=== PATIENT | female | born 1950 | race Caucasian/White ===

== ENCOUNTER 2016-08-28 07:35 | Inpatient (IN) | payer OTHER ==
[~2016-08-28] VITALS: Ht 154.9 cm; Wt 80.5 kg
[2016-08-28] VITALS (15 sets, daily range): BP systolic 124–186; BP diastolic 66–100
[~2016-08-28 07:35] MED LIST: DICLOFENAC SODI75 MG PO; NORCO 5/3251 TABLET PO; PERCOCET 5/31 TABLET PO; ZOFRAN4 MG PO
[2016-08-28 08:16] LABS: EOSINOPHIL (%) 1.2 % (0-5); EOSINOPHIL COUNT 0.1 K/uL (0-0.3); HEMATOCRIT 42.7 % (36.0-46.0); IMMATURE GRANULOCYTE (%) 0.4 % (0.0-0.7); LYMPHOCYTE COUNT 1.5 K/uL (1.0-2.8); MCH 29.1 PG (29.0-34.0); MCHC 33.3 G/DL (30.0-36.0); MCV 87.5 FL (83-99); MEAN PLAT.VOLUME 10.9 uM^3 (9.5-12.4); MONOCYTE (%) 5.3 % (3-12); MONOCYTE COUNT 0.5 K/uL (0-0.8); NEUTROPHIL (%) 76.3 % (45-76); PLATELET COUNT 193 K/uL (156-360); RBC DIS.WIDTH-CV 12.6 % (11.8-14.6); RBC DIS.WIDTH-SD 40.4 % (39-53); RED BLOOD COUNT 4.88 M/uL (3.80-5.20); WHITE BLOOD COUNT 9.2 K/uL (4.1-10.2)
[2016-08-28 08:38] LABS: AMYLASE 31 IU/L (1-118); CHLORIDE 106 mEq/L (99-109); POTASSIUM 3.9 mEq/L (3.7-5.4); SODIUM 139 mEq/L (136-147)
[2016-08-28 08:40] LABS: GLUCOSE 246 mg/dL (70-99)
[2016-08-28 08:41] LABS: INTER. NORMALIZED RATIO 1.1; PROTHROMBIN TIME 11.7 (9.2-11.2)
[2016-08-28 08:42] LABS: ANION GAP 9 MEQ/L (2-14)
[2016-08-28 08:43] LABS: SERUM ETHYL ALCOHOL < 10 mg/dL
[2016-08-28 08:44] LABS: GFR ESTIMATE (CALCULATED) > 59 mL/min/
[2016-08-28 08:45] LABS: UREA NITROGEN (BUN) 17 mg/dL (9-23)
[2016-08-28 08:47] LABS: LIPASE 215 U/L (1.0-51.0)
[2016-08-28 09:13] LABS: PTT > 150.0 (25-32)
[2016-08-28] MEDS ORDERED: ALEVE220 MG PO (10:30)
[2016-08-28] MEDS ORDERED: VENTOLIN HFA18 GM IH (10:30)
[2016-08-28 10:31] LABS: TROP-I INTERPRETATION POSITIVE; TROPONIN-I 2.05 ng/mL (0.0-0.30)
[2016-08-28] MEDS ORDERED: DOXYCYCLINE HY100 M3 PO (10:31)
[2016-08-28 11:10] LABS: METH RESISTANT S AUREUS PCR NEGATIVE (NEGATIVE)
[2016-08-28 11:11] LABS: PROBE CHECK PASS; SPECIMEN PROCESSING CONTROL PASS
[2016-08-28 11:22] LABS: HDL CHOLESTEROL 35 MG/DL (Desirable>=50); LDL CHOLESTEROL 102 mg/dL (Desirable<100); NON-HDL CHOLESTEROL 112 mg/dL (Desirable<160); TOTAL CHOLESTEROL 147 mg/dL (Desirable<200); TRIGLYCERIDES 49 MG/DL (Normal: <150)
[2016-08-28 12:34] LABS: POINT-OF-CARE METER ID UU13113748
[2016-08-28 12:54] LABS: ADD MIUA? NO; BILIRUBIN NEGATIVE; BLOOD NEGATIVE; COLOR STRAW ((YELLOW)); GLUCOSE (STRIP) >=500; KETONES 5; LEUKOCYTES NEGATIVE; NITRITE NEGATIVE; PROTEIN (STRIP) NEGATIVE; UCUL ADDED? NO; UROBILINOGEN 0.2 MG/DL (0.2-1.0)
[2016-08-28 13:03] LABS: SPECIFIC GRAVITY 1.056 (1.000-1.030)
[2016-08-28 13:16] LABS: ALKALINE PHOSPHATASE 75 IU/L (3-129); DIRECT BILIRUBIN 0.2 mg/dL (0.0-0.3); SAMPLE HEMOLYSIS CHECK 0; SAMPLE ICTERIC CHECK 0; SAMPLE LIPEMIA CHECK 0; TOTAL BILIRUBIN 0.5 MG/DL (0.0-1.0)
[2016-08-28 14:43] LABS: THC CANNABINOIDS NEGATIVE (50 ng/mL)
[2016-08-28 14:44] LABS: ADD MEDTOX COMMENT Y; AMPHETAMINE NEGATIVE (500 ng/mL); BARBITURATES NEGATIVE (200 ng/mL); BENZODIAZEPINES NEGATIVE (150 ng/mL); COCAINE NEGATIVE (150 ng/mL); INTERNAL CONTROLS VALID? YES; METHADONE NEGATIVE (200 ng/mL); METHAMPHETAMINE NEGATIVE (500 ng/mL); OPIATES (MORPHINE) PRESUMPTIVE POSITIVE (100 ng/mL); OXYCODONE NEGATIVE (100 ng/mL); PHENCYCLIDINE NEGATIVE (25 ng/mL); PROPOXYPHENE NEGATIVE (300 ng/mL); TRICYCLIC ANTIDEPRESSANTS NEGATIVE (300 ng/mL)
[2016-08-28 16:03] LABS: Estimated Average Glucose 192 mg/dL (70-123); HEMOGLOBIN A1c (GLYCOHEMOGLOB) 8.3 % HGB (Below 5.7)
[2016-08-28 17:03] LABS: POINT-OF-CARE METER ID UU13113803
[2016-08-28 18:50] LABS: TROP-I INTERPRETATION POSITIVE; TROPONIN-I 28.49 ng/mL (0.0-0.30)
[2016-08-28 21:37] LABS: POINT-OF-CARE METER ID UU13113731; POINT-OF-CARE USER ID LABHNS84
[2016-08-29] VITALS (23 sets, daily range): BP systolic 0–144; BP diastolic 0–85
[2016-08-29 01:17] LABS: TROP-I INTERPRETATION POSITIVE; TROPONIN-I 24.38 ng/mL (0.0-0.30)
[2016-08-29 05:48] LABS: EOSINOPHIL (%) 2.9 % (0-5); EOSINOPHIL COUNT 0.2 K/uL (0-0.3); HEMATOCRIT 38.9 % (36.0-46.0); IMMATURE GRANULOCYTE (%) 0.3 % (0.0-0.7); INSTRUMENT ABS NEUTROPHIL CT 4.5 K/uL; LYMPHOCYTE COUNT 1.9 K/uL (1.0-2.8); MCH 28.8 PG (29.0-34.0); MCHC 32.4 G/DL (30.0-36.0); MEAN PLAT.VOLUME 10.8 uM^3 (9.5-12.4); MONOCYTE (%) 7.7 % (3-12); MONOCYTE COUNT 0.6 K/uL (0-0.8); NEUTROPHIL (%) 62.8 % (45-76); NEUTROPHIL COUNT 4.5 K/uL (1.8-6.4); PLATELET COUNT 176 K/uL (156-360); RBC DIS.WIDTH-CV 12.9 % (11.8-14.6); RBC DIS.WIDTH-SD 42.6 % (39-53); RED BLOOD COUNT 4.37 M/uL (3.80-5.20); WHITE BLOOD COUNT 7.2 K/uL (4.1-10.2)
[2016-08-29 06:27] LABS: TROP-I INTERPRETATION POSITIVE
[2016-08-29 06:45] LABS: ANION GAP 8 MEQ/L (2-14); CHLORIDE 111 MEQ/L (99-109); GFR ESTIMATE (CALCULATED) > 59 mL/min/; GLUCOSE 149 mg/dL (70-99); POTASSIUM 4.1 MEQ/L (3.7-5.4); SAMPLE HEMOLYSIS CHECK 0; SAMPLE ICTERIC CHECK 0; SAMPLE LIPEMIA CHECK 0; SODIUM 142 MEQ/L (136-147); UREA NITROGEN (BUN) 11 mg/dL (9-23)
[2016-08-29 08:14] LABS: POINT-OF-CARE METER ID UU13113803
[2016-08-29 12:09] LABS: POINT-OF-CARE METER ID UU13113803
[2016-08-29 16:48] LABS: POINT-OF-CARE METER ID UU13113803
[2016-08-30] VITALS (12 sets, daily range): BP systolic 98–129; BP diastolic 49–67
[2016-08-30 05:39] LABS: HEMATOCRIT 40.5 % (36.0-46.0); MCH 28.7 PG (29.0-34.0); MCHC 32.6 G/DL (30.0-36.0); MEAN PLAT.VOLUME 10.9 uM^3 (9.5-12.4); PLATELET COUNT 191 K/uL (156-360); RBC DIS.WIDTH-CV 12.7 % (11.8-14.6); RBC DIS.WIDTH-SD 40.8 % (39-53); WHITE BLOOD COUNT 8.3 K/uL (4.1-10.2)
[2016-08-30 06:24] LABS: ANION GAP 7 MEQ/L (2-14); CHLORIDE 108 MEQ/L (99-109); GFR ESTIMATE (CALCULATED) > 59 mL/min/; GLUCOSE 167 mg/dL (70-99); POTASSIUM 4.1 MEQ/L (3.7-5.4); SAMPLE HEMOLYSIS CHECK 0; SAMPLE ICTERIC CHECK 0; SAMPLE LIPEMIA CHECK 0; SODIUM 141 MEQ/L (136-147); UREA NITROGEN (BUN) 15 mg/dL (9-23)
[2016-08-30] MEDS ORDERED: EFFIENT10 MG PO (11:41)
[2016-08-30] MEDS ORDERED: LOPRESSOR25 MG PO (11:42)
[2016-08-30] MEDS ORDERED: NITROSTAT0.4 MG SL (11:42)
[2016-08-30] MEDS ORDERED: ASPIR-LOW81 MG PO (11:42)
[2016-08-30] MEDS ORDERED: ATORVASTATIN CA40 MG PO (11:42)
[2016-08-30] MEDS ORDERED: LISINOPRIL2.5 MG PO (11:43)
[2016-08-30 11:51] LABS: POINT-OF-CARE USER ID 606021424
[2016-08-30] MEDS ORDERED: METFORMIN HCL500 MG PO (12:00)
== END 2016-08-30 14:45 | disposition home or self-care (01) | DRG 247 ==
LOC: EME 07:35 → CATH 08:17 → 4WEST 09:30
PROVIDERS: Emergency Medicine; Internal Medicine Cardiovascular Disease; Internal Medicine Interventional Cardiology
DX: I21.19 ST elevation (STEMI) myocardial infarction involving other coronary artery of inferior wall (principal); I25.10 Atherosclerotic heart disease of native coronary artery without angina pectoris; I34.0 Nonrheumatic mitral (valve) insufficiency; E11.9 Type 2 diabetes mellitus without complications; I25.5 Ischemic cardiomyopathy; E66.9 Obesity, unspecified; Z68.33 Body mass index [BMI] 33.0-33.9, adult; Z82.49 Family history of ischemic heart disease and other diseases of the circulatory system
CPT/HCPCS: 71010; 80048; 80061; 80076; 81003; 82150; 82948; 83036; 83690; 84484; 84999; 85025; 85027; 85347; 85610; 85730; 86900; 86901; 87641; 93005; 99281; 99285; C1725; C1769; C1874; C1887; G0480; J1644; J1815; J2250; J3010; J7030